=== PATIENT | male | born 1960 | race African-American/Black ===

== ENCOUNTER 2020-07-05 20:22 | Emergency (ER) | payer OTHER ==
[~2020-07-05] VITALS: Ht 172.7 cm; Wt 81.6 kg
--- NOTE | 2020-07-05 20:50 | NUR ---
BIBSELF C/O WOUND R CHEEK +FACIAL SWELLING UNK TDAP, PT AAOX4, -SOB, NAD NOTED, VSS ,PENDING ER PROVIDER CHELY
[2020-07-05] MEDS ORDERED: ACETAMINOPHEN ES 500 MG TABLET ONE (21:28)
[2020-07-05] MEDS ORDERED: ACETAMINOPHEN ES 500 MG TABLET PO ONE (21:30)
[2020-07-05] MEDS ORDERED: IV NS 0.9% 1,000 ML BAG IV ONE (21:30)
[2020-07-05 21:35] LABS: BASOPHILS # (AUTO) 0.1 /CMM (0.0-0.2); BASOPHILS % (AUTO) 0.5 % (0.0-2.0); EOSINOPHILS % (AUTO) 1.7 % (0.0-6.0); HEMATOCRIT 42 % (39-51); LYMPHOCYTES # (AUTO) 1.5 /CMM (0.8-4.8); LYMPHOCYTES % (AUTO) 14.6 % (20.0-44.0); MEAN CORPUSCULAR HGB CONC 33 g/dl (31.0-36.0); MEAN CORPUSCULAR VOLUME 93 fL (80-96); NEUTROPHILS # (AUTO) 7.8 /CMM (1.8-8.9); NEUTROPHILS % (AUTO) 74.2 % (43.0-81.0); PLATELET COUNT (AUTO) 333 /CMM (150-450); RED BLOOD CELL COUNT(AUTO) 4.51 MIL/uL (4.5-6.0); WHITE BLOOD COUNT (AUTO) 10.5 K/uL (4.3-11.0)
[2020-07-05 21:41] LABS: CALCIUM, SERUM 9.2 mg/dL (8.5-10.1); CREATININE 1.2 mg/dL (0.6-1.3); POTASSIUM 3.4 mmol/L (3.5-5.1)
[2020-07-05 21:45] LABS: BILIRUBIN,DIRECT 0.1 mg/dL (0.0-0.2); BILIRUBIN,TOTAL 0.6 mg/dL (0.2-1.0); TOTAL PROTEIN, SERUM 7.7 g/dL (6.4-8.2)
[2020-07-05] MEDS ORDERED: IOHEXOL-300 100 ML VIAL IV ONE (22:17)
[2020-07-05] MEDS ORDERED: CT SWABBABLE VALVE TRANS SET 1 EA INFUS.SET MC ONE (22:17)
[2020-07-05] MEDS ORDERED: IV NS 0.9% 250 ML IV ONE (22:17)
--- NOTE | 2020-07-05 22:20 | NUR ---
PT TO CT
[2020-07-05] MEDS ORDERED: ONDANSETRON HCL/PF 4 MG/2 ML VIAL ONE (22:55)
[2020-07-05] MEDS ORDERED: METRONIDAZOLE 500MG/ NS 100ML 100 ML IV ONE (22:55)
[2020-07-05] MEDS ORDERED: CLINDAMYCIN 900 MG/6 ML VIAL ONE (22:55)
[2020-07-05] MEDS ORDERED: MORPHINE SULFATE INJ 4 MG/ML DISP.SYRIN ONE (22:58)
[2020-07-05] MEDS ORDERED: MORPHINE SULFATE INJ 2 MG/ML DISP.SYRIN IV ONE (23:00)
[2020-07-05] MEDS ORDERED: FLAGYL/NS RTU 500 MG/100 ML PIGGYBACK IV ONE (23:00)
[2020-07-05] MEDS ORDERED: ONDANSETRON HCL/PF 4 MG/2 ML VIAL IV ONE (23:00)
[2020-07-05] MEDS ORDERED: CLINDAMYCIN 600 MG in IV D5W 100 ML IV ONE (23:00)
--- NOTE | 2020-07-05 23:01 | NUR ---
DR ALIDA PARADA, PER ANSWERING SERVICE UNAVAILABLE TONIGHT.
--- NOTE | 2020-07-05 23:04 | NUR ---
DR CYNDIE PARADA.
--- NOTE | 2020-07-05 23:20 | NUR ---
COVID SWAB SENT TO LAB
--- NOTE | 2020-07-06 00:13 | NUR ---
PT REQUESTED TO GIVE UPDATE TO FAMILY, GENARO , NO ANSWER AND UNABLE TO LEAVE MESSAGE
--- NOTE | 2020-07-06 00:36 | NUR ---
[facility] called for higher level of care. No beds available.
--- NOTE | 2020-07-06 01:05 | NUR ---
[facility] called for higher level of care. Facesheet and clinicals faxed.
--- NOTE | 2020-07-06 01:21 | NUR ---
SPOKE WITH LUPILLO FROM [facility]. PER LUPILLO, CASE MANAGEMENT NEEDED IN ORDER TO ACCEPT TRANSFER. NOT AVAILABLE UNTIL THE MORNING. REQUESTED TO KEEP CASE OPEN. WILL CALL BACK IN THE AM FOR UPDATE
--- NOTE | 2020-07-06 01:35 | NUR ---
[facility] transfer center called for higher level of care. No bed available.
[2020-07-06] MEDS ORDERED: METF-440 PO (02:20)
[2020-07-06] MEDS ORDERED: CLIN300C12 PO (02:20)
[2020-07-06 02:37] VITALS: BP 132/80
--- NOTE | 2020-07-06 02:37 | NUR ---
Patient does not wish to proceed with medical care recommended by Dr. Costa. Patient given information related to possible complications, up to and including , which could occur as a result of leaving the hospital at this time. Patient verbalizes understanding of risks involved due to leaving against medical advice. Patient has signed AMA form.
--- NOTE | 2020-07-07 17:22 | NUR ---
RECEIVED A CALL FROM [facility] PATIENT IS POSITIVE WITH MRSA NARES.
--- NOTE | 2020-07-07 17:24 | NUR ---
CALLED AND LEFT A MESSAGE
== END 2020-07-06 02:38 | disposition left against medical advice (07) ==
LOC: ER 20:22
DX: L03.211 Cellulitis of face (principal); L02.01 Cutaneous abscess of face; I10 Essential (primary) hypertension; E11.9 Type 2 diabetes mellitus without complications; Z79.4 Long term (current) use of insulin; R50.9 Fever, unspecified; Z20.822 Contact with and (suspected) exposure to COVID-19; E88.09 Other disorders of plasma-protein metabolism, not elsewhere classified
CPT/HCPCS: 36415; 70487; 80048; 80076; 82962; 83605; 85025; 87040 ×2; 87081; 87426; 96361; 96365; 96367; 96375; 99285; C9803; J2270; J2405; J3490 ×2; J7030 ×2; J7050; J7060; Q9967

== ENCOUNTER 2020-09-23 12:16 | Emergency (ER) | payer OTHER ==
[~2020-09-23] VITALS: Ht 172.7 cm; Wt 81.6 kg
[~2020-09-23 12:16] MED LIST: CLIN300C12 PO; METF-440 PO
[2020-09-23 12:35] VITALS: BP 157/80
--- NOTE | 2020-09-23 12:35 | NUR ---
BIBRA78 [employer] REQUESTING BP MED REFILL. UNABLE TO RECALL WHAT B/P MEDS HE TAKES. THE PATIENT DENIES PAIN. IN ROOM AIR AND DENIES SOB. RESPIRATION REGULAR AND UNLABORED. WILL CONTINUE TO MONITOR THE PATIENT.
--- NOTE | 2020-09-23 12:55 | NUR ---
"SS Consult: SS consult requested for Drug abuse & homelessness. The pt. is a 60 year old Black male. SW met with pt. bedside & pt. is A&O X 4 and appears well-groomed. Pt. is guarded and refused to answer details about homelessness. Pt. only [facility] [place] [address]; ]. Pt. states he uses Amphetamine weekly and last used on Sunday. Pt. denies using other drugs or alcohol. SW offered pt. rehab placement. Pt. stated that he is not interested in quitting. SW provided pt. with Addiction resources and pt. refused resources. Pt. refused to answer questions about support system. Pt.s mood is dysphoric, irritable. Pt. stated he has been diagnosed with Paranoid Schizophrenia and has been complaint with medication. Patient denies SI/HI and denies hallucinations. SW provided pt. with mental health resources and pt. accepted refused them. Plan: Pt. stated he has been living at [facility] [[address] [place] [address]; ] and wants to return there once discharged. Patient signed homeless waiver & it was placed in the pt.s chart. SW provided pt. with the following homeless resources, addiction resources & mental health resources & pt. refused them : Substance Abuse resources offered included: [facility] Substance Abuse Self-Helpline ([facility]) ; CRI -HELP [address] [facility]. [place]. [place] [address] ; [facility] [address] [facility] [address] ; [facility] [address] [facility]. [facility] [address] ; [facility] [address] [facility] [address] ; [facility] 4510 [facility] [address] ; [facility] [address] [facility] [address] ; [facility] Substance Abuse Helpline([facility] ; [facility] ; [facility] [place]; [facility] [place]; Cri[facility]Help [place]; [facility] Greyson Del [place]; [facility]; [facility]; [facility] [place]; [facility], [facility]; Alcoholics Anonymous -SFV; Am-Qmef-Iqmbdkt ; Marijuana Anonymous -SFV; Narcotics Anonymous www.na.org; Year-round shelters: [place] [address] [place], [place] [phone] ; [facility] [place] [address] [place] [address]; [facility] Emduxaj8062 [facility] [address] Winter Shelters: [facility] Provider: José Antonio of [place] Address: [address] [place], [address] # of Beds: 47 Population Served: [facility] 6 | [facility] Sherri [place] Provider: Home at Last Address: [address], [address] # of Beds: 66 Population Served: [facility] reKode Education [place] Provider: First to Serve Address: [address] [facility], [address] # of Beds: 56 Population Served: [facility] Caden SukhwinderHarika MathisArena Provider: /Ms. [facility] Address: [address] [facility], [address] # of Beds: 49 Population Served: [facility] SPA 8 | [facility] Provider: First to Serve Address: [address] [facility]. Abrahan, Derian # of Beds: 37 Population Served: [place]an Hygiene: [facility]: [address] Haojass Nazario. [place] ; [facility] [address] [facility] [place] ; [facility] [address] [place] . Food Resources: [place] [facility] at [facility]- [address] [place]; Meet Each Need with Dignity ([facility]) [address] [place]; [facility] Food Pantry 66[address] [facility]; [facility] 4941 [facility]. Mental Health resources provided: [facility] [address] [place], [place] [address] ; [facility] [address] [facility] [address], [place], [place] [id number] ; Rachel Harrison [facility] [address] Rachel Harrison DrBell[place], [place] [id number] ; [facility] [address] [place], [place] [address] Healthcare Clinics: [facility] [address] [facility], [address] [place]. [place] ; [facility] [address] [facility] [address] [place] [address]; [facility] [place] [address] [facility]. [place] [phone] Counseling--Outpatient [facility] [address] [facility], [facility] [place], [place] [address] (Specializes in in-depth psychotherapy for emotional distress: anxiety, depression, interpersonal conflicts, life transitions, childhood abuse) [facility] [address] [place] [address] (Assist with solving problem marital difficulties, separation & divorce, aging parents, & grief, chronic & terminal illness) [facility] [address] [place] [address] (Deal with loss & grief, anxiety, marital difficulties) Homebound/Mental Health Services [address] [facility], [address] [place], [place] [address] (Provide in-home mental services to people who are incapable of leaving their homes) [facility] Elder[facility] Senior Service/Resource Center [address] [place], [place] [phone] [facility] [address] [place] [address] PSYCHIATRIC OUTPATIENT SERVICES [facility] Partial Hospitalization and Intensive Outpatient Program (Managed Care and [place] Only)[address] [facility] [phone] [facility] Partial Hospitalization and Outpatient Kuqhewa27143 [facility]. [address] [place], [place] [phone] [facility] Partial Hospitalization and Outpatient Kamugpj8442 [facility]. [place], [place] [phone] [facility] Rwi[address] [place], [place] [phone] [facility] Partial Hospitalization and Outpatient Ulcccan82827 Emfelix [facility] Greyson Del ValleEDWALL, [phone] "
[2020-09-23] MEDS ORDERED: INSU100I14 SQ (13:12)
[2020-09-23] MEDS ORDERED: AMLO-212 PO (13:12)
[2020-09-23] MEDS ORDERED: AMLO5TAB4 PO (13:17)
[2020-09-23] MEDS ORDERED: INSU100C10 SQ (13:17)
--- NOTE | 2020-09-23 13:22 | NUR ---
SEEN BY CHIEF TALENT OFFICER BETSY SCALES.
--- NOTE | 2020-09-23 13:30 | NUR ---
Patient discharged to home in stable condition. Written and verbal after care instructions given. Patient verbalizes understanding of instruction.
== END 2020-09-23 13:33 | disposition home or self-care (01) ==
LOC: ER 12:16
DX: Z76.0 Encounter for issue of repeat prescription (principal); I10 Essential (primary) hypertension; E11.9 Type 2 diabetes mellitus without complications; Z79.4 Long term (current) use of insulin; Z79.899 Other long term (current) drug therapy